=== PATIENT | male | born 1950 | race Two or more races ===

== ENCOUNTER 2020-05-18 18:41 | Inpatient (IN) | payer MEDICARE, OTHER ==
[~2020-05-18] VITALS: Ht 185.4 cm; Wt 99.8 kg
--- NOTE | 2020-05-18 19:22 | NUR ---
HOME PHONE, CELL [phone] JACKIE GRIER
--- NOTE | 2020-05-18 19:40 | NUR ---
MAGDALENE RA 41 From Home " called increasing weakness/falling more often Dizzy. On o2 at 3L as needed sats initially 88% on RA". PT AAOX3, PT SEEN & EVAL'D BY DR. THURSTON. PLACED ON AIRFRAME TECHNICIAN, SR. PLACED ON 4L OF O2, O2 SAT 96%. WILL CONT TO MONITOR.
[2020-05-18 19:56] LABS: BASOPHILS % (AUTO) 0.6 % (0.0-2.0); EOSINOPHILS % (AUTO) 2.1 % (0.0-6.0); HEMATOCRIT 45 % (39-51); HEMOGLOBIN 14.8 g/dL (13.5-17.5); LYMPHOCYTES # (AUTO) 1.9 /CMM (0.8-4.8); LYMPHOCYTES % (AUTO) 24.8 % (20.0-44.0); MEAN CORPUSCULAR HGB CONC 33 g/dl (31.0-36.0); MEAN CORPUSCULAR VOLUME 97 fL (80-96); MONOCYTES # (AUTO) 1.5 /CMM (0.1-1.30); MONOCYTES % (AUTO) 20.4 % (2.0-12.0); NEUTROPHILS # (AUTO) 3.9 /CMM (1.8-8.9); NEUTROPHILS % (AUTO) 52.1 % (43.0-81.0); PLATELET COUNT (AUTO) 195 /CMM (150-450); RED BLOOD CELL COUNT(AUTO) 4.61 MIL/uL (4.5-6.0); WHITE BLOOD COUNT (AUTO) 7.6 K/uL (4.3-11.0)
[2020-05-18 20:13] LABS: CARBON DIOXIDE 32 mmol/L (21-32); CHLORIDE 108 mmol/L (98-107); CREATININE 0.9 mg/dL (0.6-1.3); GLUCOSE 118 mg/dL (74-106); POTASSIUM 3.8 mmol/L (3.5-5.1); SODIUM SERUM 145 mmol/L (136-145); UREA NITROGEN, BLOOD 13 mg/dL (7-18)
[2020-05-18 20:18] LABS: ALANINE AMINOTRANSFERASE 41 U/L (12-78); ALBUMIN 3.4 g/dL (3.4-5.0); ALKALINE PHOSPHATASE 87 U/L (46-116); ASPARTATE AMINOTRANSFERASE 42 U/L (15-37); BILIRUBIN,DIRECT 0.1 mg/dL (0.0-0.2); BILIRUBIN,TOTAL 0.1 mg/dL (0.2-1.0); MAGNESIUM 1.9 mg/dL (1.8-2.4)
[2020-05-18 20:34] LABS: ABG OXYGEN SATURATION 97.3 % (92.0-98.5); ABG PCO2 13.4 mmHg (35.0-45.0); ABG PH 6.895 (7.350-7.450); ABG PO2 148.7 mmHg (75.0-100.0); AaDO2 92.4 mmHg; COHb 0.3 % (0.5-1.5); MetHb 0.3 % (0.0-1.5); O2Hb 96.7 % (94.0-97.0); SITE, ABG Left Radial; VENT MODE, BG 4L N/C
[2020-05-18 20:57] LABS: EOSINOPHILS % (MANUAL) 3 % (0-4); LYMPHOCYTES % (MANUAL) 30 % (16-48); MONOCYTES % (MANUAL) 15 % (0-11.0); NEUTROPHILS % (MANUAL) 50 (42-76)
--- NOTE | 2020-05-18 21:00 | NUR ---
RT @ BS FOR ABG. WILL CONT TO MONITOR.
[2020-05-18 21:21] LABS: ABG BASE EXCESS -0.2 mmol/L; ABG OXYGEN SATURATION 94.4 % (92.0-98.5); ABG PCO2 44.4 mmHg (35.0-45.0); ABG PH 7.374 (7.350-7.450); AaDO2 78.7 mmHg; COHb 2.8 % (0.5-1.5); MetHb 0.3 % (0.0-1.5); O2Hb 91.5 % (94.0-97.0); SITE, ABG Left Radial; VENT MODE, BG 2.5L N/C
--- NOTE | 2020-05-18 21:22 | NUR ---
invalid abg results from 05/18 1925 rn and md notified
[2020-05-18] MEDS ORDERED: AZITHROMYCIN 500 MG in IV D5W 250 ML IV ONE (22:00)
[2020-05-18] MEDS ORDERED: CEFTRIAXONE 1 G in IV D5W 50 ML IV ONE (22:00)
[2020-05-18] MEDS ORDERED: methylPREDNISolone SOD SUCC 125 MG/2ML VIAL IV ONE (22:00)
[2020-05-18] MEDS ORDERED: AZITHROMYCIN 500 MG VIAL ONE (22:11)
[2020-05-18] MEDS ORDERED: CEFTRIAXONE 1GM BAG (ER ONLY) 50 ML IV ONE (22:11)
--- NOTE | 2020-05-18 22:22 | NUR ---
MEDICATED PER ERMD ORDER, PT SILVA WELL. PT RESTING, DENIES CP, SOB, DIZZINESS, N/V AT THIS TIME. WILL CONT TO MONITOR.
[2020-05-18] MEDS ORDERED: Z GUARD REMEDY 2 OZ OINT TP PRN (22:30)
[2020-05-18] MEDS ORDERED: MAG HYDROX/AL HYDROX/SIMETH 30 ML UDC PO PRN (22:30)
[2020-05-18] MEDS ORDERED: ACETAMINOPHEN 325 MG TABLET PO PRN (22:30)
[2020-05-18] MEDS ORDERED: MAGNESIUM HYDROXIDE 30 ML UDC PO PRN (22:30)
[2020-05-18] MEDS ORDERED: ONDANSETRON HCL/PF 4 MG/2 ML VIAL IVP PRN (22:30)
[2020-05-18] MEDS ORDERED: ZOLPIDEM TARTRATE 5 MG TABLET PO PRN (22:30)
[2020-05-18] MEDS ORDERED: IPRATROPIUM NEB FS 0.5 MG/2.5 ML AMPUL.NEB ONE (23:25)
[2020-05-18] MEDS ORDERED: ALBUTEROL FS 2.5 MG/3 ML VIAL.NEB ONE (23:25)
--- NOTE | 2020-05-18 23:29 | NUR ---
PT GETTING BREATHING TX, PT SILVA WELL.
[2020-05-18] MEDS ORDERED: IPRATROPIUM NEB FS 0.5 MG/2.5 ML AMPUL.NEB NEB ONE (23:30)
[2020-05-18] MEDS ORDERED: ALBUTEROL FS 2.5 MG/3 ML VIAL.NEB NEB ONE (23:30)
--- NOTE | 2020-05-19 00:24 | NUR ---
TRIED CALLING FOR REPORT, STAFF STATES THAT THE NURSE WILL CALL ME BACK.
--- NOTE | 2020-05-19 01:14 | NUR ---
pt was transferred to the first floor under ACLS
[2020-05-19 01:15] VITALS: BP 165/95
--- NOTE | 2020-05-19 01:15 | NUR ---
RECEIVED PT FROM ER VIA [facility], PT IS AWAKE A/O X3 BUT HAVE EPISODE OF FORGETFULNESS, PT ON O2 2L VIA NASAL CANNULA SPO2 95% TRANSFER SAFELY FROM [facility] TO BED V/S CHECKED AND RECORDED, HOOKED TO TELE MONITOR WITH READING SINUS TACHY 100S, HEAD TO TOE ASSESSMENT DONE MULTIPLE ABRASION NOTED, PHOTO TAKEN,NOTED PT IS ALSO COUGHING NON PRODUCTIVE COUGH, AND PT IS ALSO SMELLS ALCOHOL ON BREATHE, INITIAL ASSESSMENT DONE PT IS ASKING FOR A BOTTLE OF BEER REMIND HIM THAT HE IS ON THE HOSPITAL AND BEER IS NOT ALLOWED HERE, HE ALSO TELL ME THAT HE IS SMOKING 10-15 CIGARETTES/ DAY, PT ABLE TO DRINK APPLE JUICE WITHOUT COUGHING, SAFETY MEASURE INITIATED BED ON LOWEST POSITION AND LOCKED SIDE RAILS UP CALL LIGHT WITHIN REACH WILL CONT TO MONITOR
[2020-05-19] MEDS ORDERED: ASPI-1169 PO (02:03)
[2020-05-19] MEDS ORDERED: PANT40TA49 PO (02:03)
[2020-05-19] MEDS ORDERED: LORA-259 PO (02:03)
[2020-05-19] MEDS ORDERED: BUPR150T12 PO (02:03)
[2020-05-19] MEDS ORDERED: MONT10TA22 PO (02:03)
[2020-05-19] MEDS ORDERED: METF-440 PO (02:03)
[2020-05-19] MEDS ORDERED: FOLI5VIA2 PO (02:03)
[2020-05-19] MEDS ORDERED: THIA100T70 PO (02:03)
[2020-05-19] MEDS ORDERED: QUET50TA PO (02:03)
[2020-05-19] MEDS ORDERED: LISI-603 PO (02:03)
[2020-05-19] MEDS ORDERED: FURO-145 PO (02:03)
[2020-05-19] MEDS ORDERED: GLIP5TAB13 PO (02:03)
[2020-05-19] MEDS ORDERED: POTA10CA43 PO (02:03)
[2020-05-19] MEDS ORDERED: ESCI20TA PO (02:03)
[2020-05-19] MEDS: IPRATROPIUM NEB FS 0.5 MG/2.5 ML AMPUL.NEB NEB SCH ×6 (02:47→23:43)
[2020-05-19] MEDS: ALBUTEROL FS 2.5 MG/3 ML VIAL.NEB NEB SCH ×6 (02:47→23:43)
[2020-05-19 04:00] VITALS: BP 158/96
--- NOTE | 2020-05-19 04:15 | NUR ---
NAVAL SURFACE FIRE SUPPORT PLANNER NOTES, REPORTED TO JOEL COLOR DIPPER THAT PATIENT WAS RESTLESSNESS AND COMPLAINING OF CHEST TIGHTNESS, BUT DENIES PAIN, STABLE VITAL SIGNS AND SHE REPLIES TO DO TROPONIN, REPORTED TO HER THAT HIS TROPONIN IN ER WAS NEGATIVE AND IF SHE WANTED ANOTHER TROPONIN, SHE REPLIED WITH ORDER TO CANCEL TROPONIN ORDER, NO FURTHER ORDERS RECEIVED, BUT CONTINUE TO MONITOR CLOSELY.
[2020-05-19] MEDS: methylPREDNISolone SOD SUCC 40 MG/ML VIAL IV SCH ×3 (05:01→20:51)
[2020-05-19 06:30] LABS: BASOPHILS % (AUTO) 0.4 % (0.0-2.0); HEMATOCRIT 43 % (39-51); HEMOGLOBIN 14.1 g/dL (13.5-17.5); LYMPHOCYTES # (AUTO) 0.4 /CMM (0.8-4.8); LYMPHOCYTES % (AUTO) 6.3 % (20.0-44.0); MEAN CORPUSCULAR HGB CONC 33 g/dl (31.0-36.0); MEAN CORPUSCULAR VOLUME 98 fL (80-96); MONOCYTES # (AUTO) 0.1 /CMM (0.1-1.30); MONOCYTES % (AUTO) 2.2 % (2.0-12.0); NEUTROPHILS # (AUTO) 5.9 /CMM (1.8-8.9); NEUTROPHILS % (AUTO) 91.1 % (43.0-81.0); PLATELET COUNT (AUTO) 185 /CMM (150-450); RED BLOOD CELL COUNT(AUTO) 4.36 MIL/uL (4.5-6.0); WHITE BLOOD COUNT (AUTO) 6.5 K/uL (4.3-11.0)
[2020-05-19 06:45] LABS: CALCIUM, SERUM 8.7 mg/dL (8.5-10.1); CREATININE 0.9 mg/dL (0.6-1.3); MAGNESIUM 1.6 mg/dL (1.8-2.4); PHOSPHORUS 3.3 mg/dL (2.5-4.9); POTASSIUM 3.7 mmol/L (3.5-5.1)
[2020-05-19] MEDS: PANTOPRAZOLE 40 MG TABLET.DR PO SCH (06:59)
[2020-05-19] MEDS ORDERED: ALPRAZOLAM 0.25 MG TABLET PO PRN (07:00)
--- NOTE | 2020-05-19 07:10 | NUR ---
RN OPENING NOTES RECEIVED PT AWAKE, A/O X3. EPISODE OF FORGETFULNESS. PT ON O2 3L VIA NASAL CANNULA SATURATING @97%. NO SOB OR ANY RESPIRATORY DISTRESS NOTED AT THIS TIME. TELE MONITOR READING SINUS TACHY @100S. MULTIPLE ABRASION NOTED. PT WITH PRODUCTIVE COUGH, MINIMAL AMOUNT. SAFETY MEASURES IMPLEMENTED. CALL LIGHT WITHIN REACH. BED LOCKED AND AT LOWEST POSITION WITH SIDE RAILS UP. NO PAIN REPORTED AT THIS TIME. WILL CONTINUE TO MONITOR
--- NOTE | 2020-05-19 07:24 | NUR ---
PT ON BED AWAKE VERY AGITATED AND RESTLESS PRN XANAX WAS GIVEN, STILL ON TELE MONITOR WITH READING SINUS RHYTHM ON HIGH 90'S PT IS KEEP ON CALLING HIS VIA PHONE AT BEDSIDE ALL NEEDS ATTENDED WILL ENDORSED TO AM SHIFT NURSE
[2020-05-19 08:00] VITALS: BP 164/80
[2020-05-19] MEDS: Magnesium 1GM/D5W 100ML PREMIX 100 ML IV SCH ×2 (10:29→11:38)
[2020-05-19 12:00] VITALS: BP 145/88
[2020-05-19] MEDS: ASPIRIN 81 MG TAB.CHEW PO SCH (13:46)
[2020-05-19] MEDS: ALPRAZOLAM 0.5 MG TABLET PO PRN ×2 (13:50→20:52)
--- NOTE | 2020-05-19 14:34 | NUR ---
patient removing his oxygen and desaturates,anxious prn xanax given per md izaguirre for sitter for safety.bed alarm on,siderails upx2,fall risk precaution, will place nexto nurse station.
--- NOTE | 2020-05-19 15:28 | NUR ---
RN NOTES CALLED JACKIE FOR VACCINE INFORMATIONS, SAID PT RECEIVED FLU VACCINE A MONTH AGO. CANNOT RECALL WHEN WAS THE LAST PNEUMO VACCINE.
[2020-05-19 16:00] VITALS: BP 148/86
[2020-05-19 16:06] LABS: ABG BASE EXCESS -0.6 mmol/L; ABG OXYGEN SATURATION 91.2 % (92.0-98.5); ABG PCO2 31.8 mmHg (35.0-45.0); ABG PH 7.464 (7.350-7.450); ABG PO2 61.4 mmHg (75.0-100.0); AaDO2 223.3 mmHg; COHb 0.5 % (0.5-1.5); MetHb 0.2 % (0.0-1.5); O2Hb 90.6 % (94.0-97.0); SITE, ABG Right Radial; VENT MODE, BG 6L NC
[2020-05-19] MEDS: buPROPion SR 150 MG TABLET.ER PO SCH (16:12)
[2020-05-19] MEDS: QUETIAPINE FUMARATE 25 MG TABLET PO SCH (16:12)
--- NOTE | 2020-05-19 19:17 | NUR ---
RN CLOSING NOTES PT SITTING ON BED, AWAKE, A/O X2-3. EPISODE OF FORGETFULNESS. ANXIOUS. PT ON O2 3L VIA NASAL CANNULA SATURATING @98%. NO SOB OR ANY RESPIRATORY DISTRESS NOTED AT THIS TIME. TELE MONITOR READING SINUS TACHY @100S. R HAND #22 INTACT, PATENT AND FLUSHED. MULTIPLE ABRASION NOTED. PT WITH PRODUCTIVE COUGH, MINIMAL AMOUNT. SAFETY MEASURES IMPLEMENTED. CALL LIGHT WITHIN REACH. BED LOCKED AND AT LOWEST POSITION WITH SIDE RAILS UP. NO PAIN REPORTED AT THIS TIME. WILL ENDORSE TO NIGHT NURSE FOR CATHLEEN
--- NOTE | 2020-05-19 19:30 | NUR ---
RN NOTE RECEIVED PATIENT IN BED WITH SITTER AT BEDSIDE, AO X 1, PATIENT IN NO S/SX OF ACUTE DISTRESS AT THIS TIME. PATIENT'S BREATHING IS EVEN AND UNLABORED. PATIENT IS ON 3 L OF OXYGEN VIA NC, TOLERATING WELL, SATURATING AT 97%, HR IS 97. PATIENT ON TELE MONITOR READING SR, HR IS 97. NOTED IV SITE R HAND 18G, PATENT AND FLUSHING WELL, NO S/S OF INFECTION OR INFILTRATION. PATIENT IS AMBULATORY WITH ASSIST, WITH URINAL AND COMMODE AT BEDSIDE. SAFETY MEASURES IMPLEMENTED PER PROTOCOL. PATIENT BED ALARM IS ON. HEAD OF BED ELEVATED. BED IS LOCKED, IN LOWEST POSITION AND SIDE RAILS UP. CALL LIGHT WITHIN REACH OF THE PATIENT. WILL CONTINUE TO MONITOR AND REASSESS FOR ANY CHANGES.
[2020-05-19 20:00] VITALS: BP 130/68
[2020-05-19] MEDS: DOXYCYCLINE 100 MG in IV D5W 100 ML IV SCH (20:52)
[2020-05-19] MEDS: CEFTRIAXONE 1 G in IV D5W 50 ML IV SCH (21:50)
[2020-05-19] MEDS ORDERED: AZITHROMYCIN 500 MG in IV D5W 250 ML IV SCH (22:00)
[2020-05-20 01:27] VITALS: BP 142/75
[2020-05-20] MEDS: IPRATROPIUM NEB FS 0.5 MG/2.5 ML AMPUL.NEB NEB SCH ×6 (03:44→23:14)
[2020-05-20] MEDS: ALBUTEROL FS 2.5 MG/3 ML VIAL.NEB NEB SCH ×6 (03:44→23:14)
[2020-05-20 04:00] VITALS: BP 150/89
[2020-05-20] MEDS: methylPREDNISolone SOD SUCC 40 MG/ML VIAL IV SCH ×3 (04:28→20:46)
[2020-05-20] MEDS: ALPRAZOLAM 0.5 MG TABLET PO PRN (04:28)
--- NOTE | 2020-05-20 04:30 | NUR ---
RN NOTE NOTED IV LINE AT R HAND PULLED OUT. REINSERTED ANOTHER IV LINE AT R FOREARM 20G, FLUSHING AND PATENT. ASEPTIC TECHNIQUE WAS OBSERVED. SALES ORDER CLERK MADE AWARE.
--- NOTE | 2020-05-20 07:05 | NUR ---
PT AWAKE, A/OX1. FOLLOWS COMMANDS. SITTER PRESENT AT BEDSIDE. NC ON 3L/MIN WITH NO SOB OR SIGNS OF DISTRESS. ST ON TELE 90S. AMBULATES WITH STAND BY ASSIST. R FA SALINE LOCKED, FLUSHED, PATENT, DRESSING INTACT. PT USES URINAL AND ABLE TO EXPRESS NEEDS. WILL MONITOR RESPIRATORY STATUS, ORIENTATION THROUGHOUT SHIFT. WILL REORIENT NEEDED. WILL REPORT TO MD NEEDED. Addendum: 05/20/20 at 0754 by ALEX GONZALEZ RN ALL HOSPITAL POLICY SAFETY PRECAUTIONS IMPLEMENTED AND HOB ELEVATED AT LEAST 30 DEGREES THROUGHOUT SHIFT.
[2020-05-20 08:00] VITALS: BP 150/68
[2020-05-20] MEDS: FUROSEMIDE 20 MG TABLET PO SCH (08:31)
[2020-05-20] MEDS: MONTELUKAST SODIUM (10MG) 10 MG TABLET PO SCH (08:31)
[2020-05-20] MEDS: PANTOPRAZOLE 40 MG TABLET.DR PO SCH (08:31)
[2020-05-20] MEDS: THIAMINE HCL 100 MG TABLET PO SCH (08:32)
[2020-05-20] MEDS: ASPIRIN 81 MG TAB.CHEW PO SCH (08:32)
[2020-05-20] MEDS: POTASSIUM CHLORIDE 10 MEQ TABLET.SA PO SCH (08:32)
[2020-05-20] MEDS: QUETIAPINE FUMARATE 25 MG TABLET PO SCH ×2 (08:32→16:12)
[2020-05-20] MEDS: buPROPion SR 150 MG TABLET.ER PO SCH ×2 (08:32→16:12)
[2020-05-20] MEDS: LISINOPRIL (20MG) 20 MG TABLET PO SCH (08:32)
[2020-05-20] MEDS: ESCITALOPRAM OXALATE (10 MG) 10 MG TABLET PO SCH (08:32)
[2020-05-20] MEDS: DOXYCYCLINE 100 MG in IV D5W 100 ML IV SCH ×2 (08:32→20:41)
[2020-05-20] MEDS ORDERED: PANTOPRAZOLE 40 MG TABLET.DR PO SCH (09:00)
[2020-05-20] MEDS: ENOXAPARIN SODIUM 40 MG/0.4 ML DISP.SYRIN SQ SCH (09:37)
[2020-05-20 12:00] VITALS: BP 132/65
[2020-05-20 16:00] VITALS: BP 159/82
--- NOTE | 2020-05-20 18:23 | NUR ---
PT AWAKE, A/OX1. FOLLOWS COMMANDS. SITTER PRESENT AT BEDSIDE. NC ON 3L/MIN WITH NO SOB OR SIGNS OF DISTRESS. ST ON TELE 70-90S. AMBULATED WITH STAND BY ASSIST. R FA SALINE LOCKED, FLUSHED, PATENT, DRESSING INTACT. PT USED URINAL AND WAS ABLE TO EXPRESS NEEDS. MONITORED RESPIRATORY STATUS, ORIENTED THROUGHOUT SHIFT. REPORTED TO MD NEEDED. ALL HOSPITAL POLICY SAFETY PRECAUTIONS WERE FOLLOWED AND IMPLEMENTED. WILL ENDORSE TO PM RN.
[2020-05-20 20:00] VITALS: BP 150/82
--- NOTE | 2020-05-20 20:00 | NUR ---
SUPERVISOR CYTOGENETIC LABORATORY NOTE RECEIVED PT AWAKE, A/O X3. EPISODE OF FORGETFULNESS. PT ON O2 3L VIA NASAL CANNULA SATURATING @97%. NO SOB OR ANY RESPIRATORY DISTRESS NOTED AT THIS TIME. TELE MONITOR READING SINUS RHYTHM @73S MULTIPLE ABRASION NOTED. HOB ELEVATED SATING 96% PT WITH PRODUCTIVE COUGH, MINIMAL AMOUNT. ALL DUE MEDS GIVEN ORDERED KEPT PTS CLEAN DRY AND COMFORTABLE SAFETY MEASURES IMPLEMENTED. CALL LIGHT WITHIN REACH. BED LOCKED AND AT LOWEST POSITION WITH SIDE RAILS UP. NO PAIN REPORTED AT THIS TIME. WILL CONTINUE TO MONITOR
--- NOTE | 2020-05-20 21:00 | NUR ---
telegraph messenger notes sitter at bedside anticipate -pts needs , hob elevated at all times ,c/o of pain on right arm (iv site ) re assess iv site, patent and intact no swelling ,no redness no infiltration , per pts request to remove iv site .new iv line reinserted on right hand 22 gauge with goog blood return will continue to monitor pts.
[2020-05-20] MEDS: CEFTRIAXONE 1 G in IV D5W 50 ML IV SCH (22:05)
[2020-05-20] MEDS: HYDROCODONE/APAP 5/325MG TABLET PO PRN (22:07)
[2020-05-21] VITALS: BP 150/82
[2020-05-21 04:00] VITALS: BP 150/80
[2020-05-21] MEDS: ALBUTEROL FS 2.5 MG/3 ML VIAL.NEB NEB SCH ×6 (04:18→23:19)
[2020-05-21] MEDS: IPRATROPIUM NEB FS 0.5 MG/2.5 ML AMPUL.NEB NEB SCH ×6 (04:18→23:19)
[2020-05-21] MEDS: HYDROCODONE/APAP 5/325MG TABLET PO PRN (04:21)
[2020-05-21] MEDS: methylPREDNISolone SOD SUCC 40 MG/ML VIAL IV SCH ×2 (04:25→11:39)
--- NOTE | 2020-05-21 05:34 | NUR ---
teleradiologist notes Pts remains in bed awake alert and responsive breathing treatment given by rt , due meds given as ordered ,sitter at bedside ,will continue to monitor pts , will endorse to rn day shift for continuity of care .v/s stable afebrile.
--- NOTE | 2020-05-21 07:32 | NUR ---
PT AWAKE, A/OX2. FOLLOWS COMMANDS. SITTER PRESENT AT BEDSIDE. NC ON 3L/MIN WITH MILD SOB, NO SIGNS OF DISTRESS. HOB ELEVATED 45 DEGREES AND ENCOURAGED PT TO RELAX AND ENVIRONMENT DIMMED AND QUIETED. ST ON TELE 80-90S. AMBULATES WITH STAND BY ASSIST. R HAND SALINE LOCKED, FLUSHED, PATENT, DRESSING INTACT. PT USES URINAL AND ABLE TO EXPRESS NEEDS. WILL MONITOR RESPIRATORY STATUS, ORIENTATION THROUGHOUT SHIFT. WILL REORIENT NEEDED. WILL REPORT TO MD NEEDED. WILL ASSIST WITH AMBULATION NEEDED.
[2020-05-21 08:00] VITALS: BP 154/82
[2020-05-21] MEDS: DOXYCYCLINE 100 MG in IV D5W 100 ML IV SCH (08:36)
[2020-05-21] MEDS: PANTOPRAZOLE 40 MG TABLET.DR PO SCH (08:36)
[2020-05-21] MEDS: ESCITALOPRAM OXALATE (10 MG) 10 MG TABLET PO SCH (08:36)
[2020-05-21] MEDS: buPROPion SR 150 MG TABLET.ER PO SCH ×2 (08:36→16:52)
[2020-05-21] MEDS: ASPIRIN 81 MG TAB.CHEW PO SCH (08:36)
[2020-05-21] MEDS: POTASSIUM CHLORIDE 10 MEQ TABLET.SA PO SCH (08:37)
[2020-05-21] MEDS: FUROSEMIDE 20 MG TABLET PO SCH (08:37)
[2020-05-21] MEDS: LISINOPRIL (20MG) 20 MG TABLET PO SCH (08:37)
[2020-05-21] MEDS: THIAMINE HCL 100 MG TABLET PO SCH (08:38)
[2020-05-21] MEDS: MONTELUKAST SODIUM (10MG) 10 MG TABLET PO SCH (08:38)
[2020-05-21] MEDS: QUETIAPINE FUMARATE 25 MG TABLET PO SCH ×2 (08:38→16:52)
[2020-05-21] MEDS: ENOXAPARIN SODIUM 40 MG/0.4 ML DISP.SYRIN SQ SCH (09:18)
[2020-05-21 12:00] VITALS: BP 128/82
[2020-05-21] MEDS: FLUTICASONE/VILANTEROL 1 EACH BLST.W.DEV IH SCH (12:44)
--- NOTE | 2020-05-21 15:48 | NUR ---
PT TRANSFERED TO [facility] VIA BED. FAMILY MADE AWARE. ALL BELONGINGS BROUGHT.
[2020-05-21 16:00] VITALS: BP 147/85
--- NOTE | 2020-05-21 19:15 | NUR ---
PT AWAKE, A/OX2. FOLLOWS COMMANDS. SITTER PRESENT AT BEDSIDE. NC ON 3L/MIN WITH MILD SOB, NO SIGNS OF DISTRESS. HOB ELEVATED 45 DEGREES AND ENCOURAGED PT TO RELAX AND ENVIRONMENT DIMMED AND QUIETED. ST ON TELE 80-90S. AMBULATED WITH STAND BY ASSIST. R HAND SALINE LOCKED, FLUSHED, PATENT, DRESSING INTACT. PT USED URINAL AND WAS ABLE TO EXPRESS NEEDS. MONITORED RESPIRATORY STATUS, ORIENTED THROUGHOUT SHIFT. REORIENTED NEEDED. REPORTED TO MD NEEDED. ASSISTED WITH AMBULATION NEEDED. ALL HOSPITAL POLICY SAFETY PRECAUTIONS IMPLEMENTED. ALL ORDERS IMPLEMENTED. ENDORSED TO PM RN.
--- NOTE | 2020-05-21 19:56 | NUR ---
SUPERVISOR COSTUMING NOTES PATIENT IN BED, AWAKE, ALERT AND ORIENTED X 3. WITH SITTER AT BEDSIDE. BREATHING EVEN AND UNLABORED ON 3L NC. SHOWS NO SIGNS OF ACUTE RESPIRATORY DISTRESS. NO ACUTE PAIN. TELE MONITOR SR. IV ON R HAND 22G SL. SHOWS NO SIGNS OF INFILTRATION, NO REDNESS. FLUSHING WELL. SAFETY PRECAUTIONS IN PLACE. BED IN LOWEST POSITION, LOCKED, AND CALL LIGHT KEPT WITHIN REACH. WILL CONTINUE TO MONITOR.
[2020-05-21 20:00] VITALS: BP 143/94
[2020-05-21] MEDS: DOXYCYCLINE HYCLATE (100 MG) 100 MG TABLET PO SCH (21:20)
[2020-05-21] MEDS: CEFTRIAXONE 1 G in IV D5W 50 ML IV SCH (21:20)
[2020-05-21] MEDS: MUPIROCIN OINT 2% 22 GM TUBE NS SCH (21:21)
[2020-05-22 00:12] VITALS: BP 149/95
[2020-05-22] MEDS: IPRATROPIUM NEB FS 0.5 MG/2.5 ML AMPUL.NEB NEB SCH ×3 (03:26→10:59)
[2020-05-22] MEDS: ALBUTEROL FS 2.5 MG/3 ML VIAL.NEB NEB SCH ×3 (03:26→10:59)
[2020-05-22 04:00] VITALS: BP 134/85
--- NOTE | 2020-05-22 06:48 | NUR ---
SUPERVISOR ROVING DEPARTMENT NOTES PATIENT IN BED, AWAKE, ALERT AND ORIENTED X 3. WITH SITTER AT BEDSIDE. BREATHING EVEN AND UNLABORED ON 3L NC. SHOWS NO SIGNS OF ACUTE RESPIRATORY DISTRESS. NO ACUTE PAIN. TELE MONITOR SR. IV ON R HAND 22G SL. SHOWS NO SIGNS OF INFILTRATION, NO REDNESS. FLUSHING WELL. ALL DUE MEDICATIONS GIVEN. ALL NEEDS ATTENED TO. SAFETY PRECAUTIONS IN PLACE. BED IN LOWEST POSITION, LOCKED, AND CALL LIGHT KEPT WITHIN REACH. WILL ENDORSE TO ONCOMING NURSE.
--- NOTE | 2020-05-22 07:07 | NUR ---
HOME HEALTH CARE WORKER OPENING NOTES RECEIVED PT AWAKE IN BED AT THIS TIME. PT AOX3. PT ABLE TO MAKE NEEDS KNOWN. NO SOB NOTED, NO S/S OF ANY ACUTE DISTRESS NOTED. PT ON EXTERNAL CRIBBING SETTER READING SR 75. NO C/O PAIN AT THIS TIME. RESPIRATIONS ARE EVEN AND UNLABORED WITH EQUAL RISE AND FALL IN CHEST. PT NOTED ON 3LPM O2 VIA NC. IV ACCESS NOTED IN RIGHT HAND G#22 INTACT, PATENT AND FLUSHING WELL. SAFETY PRECAUTION IN PLACE AND MAINTAINED AT ALL TIMES. BED IN LOWEST LOCKED POSITION, HOB ELEVATED, SIDE RAILS UP X 2, CALL LIGHT AND TABLE WITHIN REACH. WILL CONTINUE TO MONITOR.
[2020-05-22 08:00] VITALS: BP 155/97
[2020-05-22] MEDS: PANTOPRAZOLE 40 MG TABLET.DR PO SCH (08:22)
[2020-05-22] MEDS: ASPIRIN 81 MG TAB.CHEW PO SCH (08:59)
[2020-05-22] MEDS: methylPREDNISolone SOD SUCC 40 MG/ML VIAL IV SCH (08:59)
[2020-05-22] MEDS: MONTELUKAST SODIUM (10MG) 10 MG TABLET PO SCH (09:00)
[2020-05-22] MEDS: DOXYCYCLINE HYCLATE (100 MG) 100 MG TABLET PO SCH (09:00)
[2020-05-22] MEDS: QUETIAPINE FUMARATE 25 MG TABLET PO SCH (09:00)
[2020-05-22] MEDS: FUROSEMIDE 20 MG TABLET PO SCH (09:00)
[2020-05-22] MEDS: POTASSIUM CHLORIDE 10 MEQ TABLET.SA PO SCH (09:00)
[2020-05-22] MEDS: buPROPion SR 150 MG TABLET.ER PO SCH (09:00)
[2020-05-22] MEDS: ESCITALOPRAM OXALATE (10 MG) 10 MG TABLET PO SCH (09:00)
[2020-05-22] MEDS: LISINOPRIL (20MG) 20 MG TABLET PO SCH (09:01)
[2020-05-22] MEDS: THIAMINE HCL 100 MG TABLET PO SCH (09:02)
[2020-05-22] MEDS: MUPIROCIN OINT 2% 22 GM TUBE NS SCH (09:03)
[2020-05-22] MEDS: FLUTICASONE/VILANTEROL 1 EACH BLST.W.DEV IH SCH (09:04)
[2020-05-22] MEDS: ENOXAPARIN SODIUM 40 MG/0.4 ML DISP.SYRIN SQ SCH (09:15)
[2020-05-22 12:05] VITALS: BP 136/89
[2020-05-22] MEDS ORDERED: LORAZEPAM INJ 2 MG/ML VIAL IV STA (13:00)
--- NOTE | 2020-05-22 15:20 | NUR ---
SENSITOMETRISTAGENCY CASHIER NOTES PT DISCHARGED TO HOME AT THIS TIME. PT IN MEDICALLY STABLE CONDITION. ALL DISCHARGE INSTRUCTIONS PROVIDED FOR. PT VERBALIZE UNDERSTANDING. ALL CARE, NEEDS. MEDICATIONS AND TREATMENT ADMINISTERED ANTICIPATED PER ORDER. PT KEPT CLEAN AND DRY. MEDICATION PICKED UP FROM PHARMACY AND RETURNED TO PT. ALL BELONGINGS ACCOUNTED FOR, SIGNED BY PT AND GIVEN TO PT. COPY OF BELONGINGS FILED IN CHART. PICTURES TAKEN AND FILED IN CHART. ID BAND REMOVED. IV ACCESS REMOVED, PRESSURE APPLIED, SECURE WITH GAUZE AND TAPE. NO SIGN OF INFILTRATION OR BLEEDING NOTED. PT ACCOMPANIED TO LOBBY VIA WHEELCHAIR, BY NURSE. LISANDRO, CHARGE NURSE AND DOCTOR ATUL MIRANDA.
== END 2020-05-22 15:45 | disposition home or self-care (01) | DRG 190 ==
LOC: ER 18:41 → TELE1 23:58 → TELE 05-21 14:40
PROVIDERS: ADMIT Student in an Organized Health Care Education/Training Program; ATTEND Nurse Practitioner Acute Care
DX: J44.1 Chronic obstructive pulmonary disease with (acute) exacerbation (principal); J96.21 Acute and chronic respiratory failure with hypoxia; J90 Pleural effusion, not elsewhere classified; E66.2 Morbid (severe) obesity with alveolar hypoventilation; J98.11 Atelectasis; I25.10 Atherosclerotic heart disease of native coronary artery without angina pectoris; I10 Essential (primary) hypertension; G30.9 Alzheimer's disease, unspecified; F02.80 Dementia in other diseases classified elsewhere, unspecified severity, without behavioral disturbance, psychotic disturbance, mood disturbance, and anxiety; Z99.81 Dependence on supplemental oxygen; E11.9 Type 2 diabetes mellitus without complications; E78.5 Hyperlipidemia, unspecified; Z68.31 Body mass index [BMI] 31.0-31.9, adult; F32.9 Major depressive disorder, single episode, unspecified; F17.200 Nicotine dependence, unspecified, uncomplicated; Z22.322 Carrier or suspected carrier of Methicillin resistant Staphylococcus aureus
CPT/HCPCS: 36415; 36600; 70450-TC; 71045-TC; 80048-TC; 80061-TC; 80076-TC; 82803-TC; 82962-TC; 83605-TC; 83735-TC; 83880; 84100-TC; 84484-TC; 85025-TC; 85730-TC; 87040-TC; 87081-TC; 94799-TC; A4217; C9803; G0378; J0456; J0696; J1650; J2920; J2930; J3475; J3490; J7050; J7060